=== PATIENT | male | born 1990 | race African-American/Black ===

== ENCOUNTER 2019-04-17 11:31 | Emergency (ER) | payer OTHER ==
[~2019-04-17] VITALS: Ht 172.7 cm; Wt 87.9 kg
[2019-04-17 11:40] VITALS: BP 153/79
[2019-04-17] MEDS ORDERED: AMOX500T PO (11:51)
[2019-04-17] MEDS ORDERED: PROM118S9 PO (11:51)
[2019-04-17] MEDS ORDERED: MELO7.5T29 PO (11:51)
--- NOTE | 2019-04-17 11:52 | PHYS DOC ---
Past History Past Medical History: No Pertinent History Past Surgical History: Tonsillectomy, Other Additional Past Surgical Histo: knee arthroscopic surgery Smoking: Non-smoker Alcohol Use: Occasionally Drug Use: None Adult General Chief Complaint Chief Complaint: SORE THROAT HPI HPI Patient is a 29-year-old male presents complaining of 3 days of sore throat and sinus congestion and discomfort. Maximum temperature at home was 99. No nausea or vomiting. No difficulty breathing. Unable to get into his primary care team. Nothing makes symptoms better or worse.[] Review of Systems Review of Systems Constitutional: Denies fever or chills [] Eyes: Denies change in visual acuity, redness, or eye pain [] HENT: See history of present illness[] Respiratory: Denies cough or shortness of breath [] Cardiovascular: No chest pain or palpitations[] GI: Denies abdominal pain, nausea, vomiting, bloody stools or diarrhea [] : Denies dysuria or hematuria [] Musculoskeletal: Denies back pain or joint pain. Recent right hand injury for which she was on cephalexin approximately 2 weeks ago. This is healing well. [] Integument: Denies rash or skin lesions [] Neurologic: Denies headache, focal weakness or sensory changes [] Endocrine: Denies polyuria or polydipsia [] All other systems were reviewed and found to be within normal limits, except as documented in this note. Allergies Allergies Allergies Coded Allergies Type Severity Reaction Last Updated Verified No Known Drug Allergies 04/17/19 No Physical Exam Physical Exam Constitutional: Well developed, well nourished, no acute distress, non-toxic appearance. [] HENT: Normocephalic, atraumatic, bilateral external ears normal, oropharynx moist, no oral exudates, nose normal. Posterior pharyngeal streaking is present. Minor sinus tenderness to percussion.[] Eyes: PERRLA, EOMI, conjunctiva normal, no discharge. [] Neck: Normal range of motion, no tenderness, supple, no stridor. [] Cardiovascular:Heart rate regular rhythm, no murmur [] Lungs & Thorax: Bilateral breath sounds clear to auscultation [] Abdomen: Bowel sounds normal, soft, no tenderness, no masses, no pulsatile masses. [] Skin: Warm, dry, no erythema, no rash. [] Back: No tenderness, no CVA tenderness. [] Extremities: No tenderness, no cyanosis, no clubbing, ROM intact, no edema. [] Neurologic: Alert and oriented X 3, normal motor function, normal sensory function, no focal deficits noted. [] Psychologic: Affect normal, judgement normal, mood normal. [] EKG EKG [] Radiology/Procedures Radiology/Procedures [] Course & Med Decision Making Course & Med Decision Making Pertinent Labs and Imaging studies reviewed. (See chart for details) Medical decision making: Patient appears to have an upper respiratory infection/sinusitis. No evidence of tonsillitis given that he has had previous tonsillectomy. No evidence of retropharyngeal abscess or peritonsillar abscess. No evidence of meningitis or encephalitis. Nontoxic patient. We'll treat with outpatient medicine.[] Dragon Disclaimer Dragon Disclaimer This electronic medical record was generated, in whole or in part, using a voice recognition dictation system. Departure Departure: Impression: Primary Impression: Upper respiratory infection Additional Impression: Pharyngitis Disposition: HOME, SELF-CARE Condition: STABLE Referrals: RAYMOND MASSEY DO (PCP) Follow-up in 2 days Patient Instructions: Upper Respiratory Infection, Adult, Viral and Bacterial Pharyngitis Additional Instructions: Drink plenty of fluids. Follow-up with your regular doctor in 2 days. Return to the ER if worsening pain, difficulty breathing, or any other concerns. Scripts D-Methorphan Hb/Prometh Hcl (PROMETHAZINE-DM SYRUP) 118 Ml Syrup 5 ML PO PRN Q4HRS for CONGESTION, #120 ML Prov: SANCHEZ GRAHAM DO 04/17/19 Meloxicam (MELOXICAM) 7.5 Mg Tablet 7.5 MG PO DAILY for PAIN, #20 TAB Prov: SANCHEZ GRAHAM DO 04/17/19 Amoxicillin (AMOXICILLIN) 500 Mg Tablet 500 MG PO TID for pharyngitis for 10 Days, #30 TAB Prov: SANCHEZ GRAHAM DO 04/17/19 Problem Qualifiers Primary Impression: Upper respiratory infection URI type: unspecified URI Qualified Codes: J06.9 - Acute upper respiratory infection, unspecified Additional Impression: Pharyngitis Pharyngitis/tonsillitis etiology: unspecified etiology Qualified Codes: J02.9 - Acute pharyngitis, unspecified SANCHEZ GRAHAM DO Apr 17, 2019 11:52
== END 2019-04-17 12:02 | disposition home or self-care (01) ==
LOC: ER 11:31
DX: J02.9 Acute pharyngitis, unspecified (principal)
CPT/HCPCS: 99283

== ENCOUNTER 2019-08-25 20:00 | Inpatient (IN) | payer OTHER ==
[~2019-08-25] VITALS: Ht 170.2 cm; Wt 85.8 kg
[~2019-08-25 20:00] MED LIST: AMOX500T PO; MELO7.5T29 PO; PROM118S9 PO
[2019-08-25] MEDS ORDERED: IV RINGERS SOLUTION,LACTATED 1,000 ML IV SCH (20:08)
--- NOTE | 2019-08-25 20:08 | PHYS DOC ---
Past History Past Medical History: No Pertinent History Past Surgical History: Tonsillectomy, Other Additional Past Surgical Histo: knee arthroscopic surgery Smoking: Non-smoker Alcohol Use: Occasionally Drug Use: None Adult General Chief Complaint Chief Complaint: ".. I ve been short of breath.. and get winded with any activity.. my heart gets to beating fast.. 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 Pt. recently assigned to his [facility] for approximately 6 months before returning to [facility]. Patient states he seems to be more short of breath and easily becomes tachycardic with minimal activity. Patient is up-to-date with vaccinations. No recent ill contacts. No history of prior DVTs or pulmonary embolisms. Has had occasionally had night sweats. No hx of bloody or tarry stools. Review of Systems Review of Systems Constitutional: Night fevers Eyes: Denies change in visual acuity, redness, or eye pain [] HENT: Denies nasal congestion or sore throat [] Respiratory: Complaints of a nonproductive cough and shortness of breath [] Cardiovascular: No additional information not addressed in HPI [] GI: Denies abdominal pain, nausea, vomiting, bloody stools or diarrhea [] : Denies dysuria or hematuria [] Musculoskeletal: Denies back pain or joint pain [] Integument: Denies rash or skin lesions [] Neurologic: Denies headache, focal weakness or sensory changes [] Endocrine: Denies polyuria or polydipsia [] All other systems were reviewed and found to be within normal limits, except as documented in this note. Family History Family History Non-contributory Current Medications Current Medications See nursing for home med Allergies Allergies Allergies Coded Allergies Type Severity Reaction Last Updated Verified No Known Drug Allergies 04/17/19 No Physical Exam Physical Exam Constitutional: Well developed, well nourished, no acute distress, non-toxic appearance. [] HENT: Normocephalic, atraumatic, bilateral external ears normal, oropharynx moist, no oral exudates, nose normal. [] Eyes: PERRLA, EOMI, conjunctiva pale, no discharge. [] Neck: Normal range of motion, no tenderness, supple, no stridor. [] Cardiovascular. Tachycardia Heart rate regular rhythm, no murmur [] Lungs & Thorax: Bilateral breath sounds clear to auscultation [] Abdomen: Bowel sounds normal, soft, no tenderness, no masses, no pulsatile masses. []Rectal showed no gross blood. Skin: Warm, dry, no erythema, no rash. Pale palms. [] Tattoos. Back: No tenderness, no CVA tenderness. [] Extremities: No tenderness, no cyanosis, no clubbing, ROM intact, no edema. [] Neurologic: Alert and oriented X 3, normal motor function, normal sensory function, no focal deficits noted. [] Psychologic: Affect normal, judgement normal, mood normal. [] EKG EKG My interpretation EKG shows a sinus tachycardia 109 bpm. No findings acute STEMI of contralateral changes.[] Radiology/Procedures Radiology/Procedures [] Course & Med Decision Making Course & Med Decision Making Pertinent Labs and Imaging studies reviewed. (See chart for details) Pt. admitted to Dr. Jones for further eval. and treatment. Will transfuse 2 units PRBC tonight. Impression: 1. Anemia Hgb= 3.8, microcytic hyperchromic indices 2. Hypokalemia 3.0 3. Elevated Creat. 1.4 4. DM = gluc.142 [] Dragon Disclaimer Dragon Disclaimer This electronic medical record was generated, in whole or in part, using a voice recognition dictation system. Departure Departure: Disposition: 01 HOME/RESIDENCE PRIOR TO ADM Condition: STABLE Referrals: RAYMOND MASSEY DO (PCP) [place] Disclaimer This chart was dictated in whole or in part using Voice Recognition software in a busy, high-work load, and often noisy Emergency Department environment. It may contain unintended and wholly unrecognized errors or omissions. LYNNE PACHECO MD Aug 25, 2019 20:08
[2019-08-25] MEDS ORDERED: ASPIRIN 81 MG TAB.CHEW PO ONE (20:25)
[2019-08-25 21:00] LABS: BASO % 0 % (0-3); CALCIUM 8.7 mg/dL (8.5-10.1); CREATININE 1.4 mg/dL (0.7-1.3); EOS # 0.1 x10^3/uL (0.0-0.7); EOS % 1 % (0-3); GFR 73.6; LYMPH # 3.2 x10^3/uL (1.0-4.8); LYMPH % 32 % (24-48); MEAN CORPUSCULAR HEMOGLOBIN 17 pg (25-35); MEAN CORPUSCULAR HGB CONC 28 g/dL (31-37); MEAN CORPUSCULAR VOLUME 59 fL (79-100); MONO % 10 % (0-9); NEUT # 5.8 x10^3uL (1.8-7.7); NEUT % 58 % (31-73); PLATELET COUNT 282 x10^3/uL (140-400); RED BLOOD COUNT 2.29 x10^6/uL (4.30-5.70); RED CELL DISTRIBUTION WIDTH 21.2 % (11.5-14.5)
[2019-08-25 21:04] LABS: HEMOGLOBIN 3.8 g/dL (13.0-17.5)
[2019-08-25 21:13] LABS: ALBUMIN 3.5 g/dL (3.4-5.0); DIRECT BILIRUBIN 0.1 mg/dL (0.0-0.2); TOTAL BILIRUBIN 0.3 mg/dL (0.2-1.0)
[2019-08-25 21:16] LABS: BARBITURATES NEG (NEG); BENZODIAZEPINES NEG (NEG); CANNABINOIDS NEG (NEG); COCAINE NEG (NEG); METHADONE NEG (NEG); OPIATES NEG (NEG); PHENCYCLIDINE NEG (NEG)
[2019-08-25 21:17] LABS: AMPHETAMINE/METHAMPHETAMINE NEG (NEG)
[2019-08-25] MEDS ORDERED: diphenhydrAMINE HCL 25 MG CAPSULE PO PRN (21:30)
[2019-08-25] MEDS ORDERED: diphenhydrAMINE HCL 25 MG CAPSULE PO ONE (21:30)
[2019-08-25] MEDS ORDERED: ONDANSETRON PF 4 MG/2 ML VIAL. IV PRN (21:30)
[2019-08-25] MEDS ORDERED: ACETAMINOPHEN 500 MG TABLET PO PRN (21:30)
[2019-08-25] MEDS ORDERED: ACETAMINOPHEN 500 MG TABLET PO ONE (21:30)
[2019-08-25 21:43] LABS: BILIRUBIN,URINE NEG (NEG); CLARITY,URINE CLEAR; COLOR,URINE YELLOW; GLUCOSE,URINE NEG (NEG); NITRITE,URINE NEG (NEG); UROBILINOGEN,URINE 0.2 mg/dL (0.2 mg/dL)
[2019-08-25 21:44] LABS: BACTERIA,URINE 0 /HPF (0-FEW); HYALINE CASTS, URINE OCC /HPF; RBC,URINE OCC /HPF (0-2); SQUAMOUS EPITHELIAL CELL,UR OCC /LPF; WBC,URINE OCC /HPF (0-4)
[2019-08-25] MEDS: FAMOTIDINE 20 MG TABLET PO SCH (21:45)
[2019-08-25 21:48] LABS: HYPOCHROMIA MARKED; PLT ESTIMATE ADEQUATE (ADEQUATE); POLYCHROMASIA MOD
[2019-08-25 21:49] LABS: ANISOCYTOSIS MOD; MICROCYTOSIS MARKED
[2019-08-25 21:50] LABS: TEAR DROP CELLS FEW
[2019-08-25 22:40] VITALS: BP 134/80
--- NOTE | 2019-08-25 22:40 | NUR ---
Admission Note: Pt transported via cart from ED to room 113. Pt able to ambulate from cart to bed w/no assistance. VSS. No c/o pain or n/v at this time. Pt continues to c/o SOA, oxygen saturation is 100% on RA. Arm band applied to patient, pt oriented to room, admission documentation completed. Plan of care discussed w/patient, pt agrees to blood transfusion. Will monitor.
[2019-08-25 23:08] LABS: FECAL OB PT NEGATIVE (NEG)
[2019-08-25 23:45] VITALS: BP 112/66
[2019-08-26] VITALS (18 sets, daily range): BP systolic 100–136; BP diastolic 62–90
--- NOTE | 2019-08-26 02:00 | NUR ---
Blood transfusion started at 08/26/19 0000. Tubing primed with Normal Saline and then primed with blood. Transfusion started at 65mls/hr, patient monitored closely [id number]. No reaction noted, transfusion increased 200mls/hr. Transfusion ended at 0200.00
[2019-08-26 02:31] LABS: RED BLOOD COUNT 2.41 x10^6/uL (4.30-5.70); RED CELL DISTRIBUTION WIDTH 28.8 % (11.5-14.5); WHITE BLOOD COUNT 8.3 x10^3/uL (4.0-11.0)
[2019-08-26 02:32] LABS: HEMOGLOBIN 4.6 g/dL (13.0-17.5)
[2019-08-26 02:33] LABS: HEMATOCRIT 15.3 % (39.0-53.0)
--- NOTE | 2019-08-26 02:49 | RAD ---
Exam: Chest 2 views INDICATION: Chest pain TECHNIQUE: Frontal and lateral views the chest Comparisons: None FINDINGS: The cardiomediastinal silhouette and pulmonary vessels are within normal limits. The lung and pleural spaces are clear. IMPRESSION: No acute cardiopulmonary process. Electronically signed by: Katelyn Shaw MD (08/26/2019 2:45 AM) [facility]
[2019-08-26] MEDS ORDERED: IPRATRPIUM/ALBUTEROL 0.5/2.5MG 3 ML NEBU. ONE (04:34)
--- NOTE | 2019-08-26 04:40 | NUR ---
Blood transfusion started at 0300 Tubing primed with Normal Saline and then primed with blood. Transfusion started at 65mls/hr, patient monitored closely [id number]. No reacted noted, transfusion increased to 200mls/hr. Transfusion ended at 0440
--- NOTE | 2019-08-26 06:13 | EKG ---
[address] [address] Test Date: 2019-08-25 Test Time: 20:14:07 Pat Name: PHOEBEDIANA MCKOY Department: Room: Gender: M System[employer] Professor: : 1990 Requested By: LYNNE PACHECO Order Number: [id number] Reading MD: Measurements Intervals [place] Rate: 109 P: 52 VA: 124 QRS: 46 QRSD: 90 T: 19 QT: 340 QTc: 459 Interpretive Statements SINUS TACHYCARDIA OTHERWISE NORMAL ECG RI6.01 No previous ECG available for comparison
[2019-08-26 06:52] LABS: BASO % 0 % (0-3); EOS # 0.1 x10^3/uL (0.0-0.7); EOS % 2 % (0-3); LYMPH % 29 % (24-48); MEAN CORPUSCULAR HEMOGLOBIN 21 pg (25-35); MEAN CORPUSCULAR HGB CONC 30 g/dL (31-37); MEAN CORPUSCULAR VOLUME 68 fL (79-100); MONO # 0.7 x10^3/uL (0.0-1.1); MONO % 9 % (0-9); NEUT # 4.3 x10^3uL (1.8-7.7); NEUT % 60 % (31-73); PLATELET COUNT 238 x10^3/uL (140-400); RED BLOOD COUNT 2.82 x10^6/uL (4.30-5.70); RED CELL DISTRIBUTION WIDTH 30.5 % (11.5-14.5); WHITE BLOOD COUNT 7.1 x10^3/uL (4.0-11.0)
[2019-08-26 06:55] LABS: HEMATOCRIT 19.2 % (39.0-53.0); HEMOGLOBIN 5.8 g/dL (13.0-17.5)
[2019-08-26 07:14] LABS: CALCIUM 7.8 mg/dL (8.5-10.1); CREATININE 1.1 mg/dL (0.7-1.3); GFR 97.2; POTASSIUM 3.4 mmol/L (3.5-5.1)
[2019-08-26] MEDS ORDERED: IPRATRPIUM/ALBUTEROL 0.5/2.5MG 3 ML NEBU. NEB PRN (07:15)
[2019-08-26] MEDS ORDERED: IPRATRPIUM/ALBUTEROL 0.5/2.5MG 3 ML NEBU. NEB SCH (08:00)
[2019-08-26] MEDS: FAMOTIDINE 20 MG TABLET PO SCH (08:14)
--- NOTE | 2019-08-26 10:44 | NUR ---
Blood transfusion started at 0841 Tubing primed with Normal Saline and then primed with blood. Transfusion started at 60mls/hr, patient monitored closely [id number]. No reacted noted, transfusion increased to 200mls/hr. Transfusion ended at 1020. No complications noted with transfusion.
[2019-08-26 10:53] LABS: HEMATOCRIT 22.6 % (39.0-53.0); RED BLOOD COUNT 3.22 x10^6/uL (4.30-5.70); RED CELL DISTRIBUTION WIDTH 30.5 % (11.5-14.5); WHITE BLOOD COUNT 8.3 x10^3/uL (4.0-11.0)
[2019-08-26 11:01] LABS: HEMOGLOBIN 6.9 g/dL (13.0-17.5)
--- NOTE | 2019-08-26 13:44 | HP ---
ADMIT DATE: 08/25/2019 HISTORY OF PRESENT ILLNESS: The patient is a 29-year-old -[place] male patient who came to the Emergency Room with increasing shortness of breath and generalized weakness, showed that his heart was beating fast and he is getting tired all the time as well as chest discomfort. He was on assignment in [facility] for approximately 6 months before returning to [facility]. He stated that he seemed to be more short of breath and easily becomes tachycardic with minimal activity. He is up-to-date with vaccination. He stated that in June of this year he has had lab work and was told that all his lab works are fine and that he is perfectly healthy. He has never had any prior history of DVT or pulmonary embolism. He did complain of occasional episodes of fresh blood per rectum; however, has never had any esophagogastroduodenoscopy or colonoscopy. He was extensively investigated in the Emergency Room and his initial lab work showed that his hemoglobin was 3.8, hematocrit 13.4 with an MCV of 59, although his white cell count and platelets are within normal range and the differential diagnosis was also within normal range. The blood film showed that the patient has polychromasia, hypochromasia, neocytosis, microcytosis and teardrop cells that are few. He was also noted to be hypokalemic with slightly elevated serum creatinine of 1.4. His prothrombin time, INR and aPTT were normal. His D-dimer was high at 2.23. Urinalysis essentially unremarkable and toxic screen was negative. The patient was admitted and has received his first unit of blood that increased his H and H to 4.6 and 15.3, so he received another unit and that increased his H and H to 5.8 and 19.2 this morning. His sedimentation rate was extremely high at 86 mm per hour and his absolute reticulocyte count was 0.095. PAST MEDICAL HISTORY: Unremarkable. PAST SURGICAL HISTORY: Significant for tonsillectomy, wisdom teeth extraction, vasectomy and left knee arthroscopic surgery. ALLERGIES: He has no known drug allergies. He is not taking any medication on a regular basis. Use of ibuprofen on as needed basis for aches and pains. FAMILY HISTORY: He has 4 brothers and 4 sisters, one brother and one sister older and rest are younger and they are all half-brothers and half-sisters. He is not aware of any medical problems with any of his brothers and sisters. His father is still alive at the age of 50 and has had a permanent pacemaker placed when he was 40 years old. His mother is alive at age of 47 and had a problem with anemia as she has heavy period and dysfunctional uterine bleeding requiring eventually total abdominal hysterectomy. There is no family history of any blood disease. In particular, there is no history of sickle cell trait or sickle cell anemia. SOCIAL HISTORY: He is , has a son and a daughter. He does not smoke, drink alcohol or use any recreational drugs. He continues to be in the [employer]. REVIEW OF SYSTEMS: The patient denied any blurring of vision, cataract, glaucoma or macular degeneration. Denied any earache, tinnitus or sensorineural deafness. Denied any nosebleeds, stuffy nose or postnasal drip. Denied any sore throat, sore tongue, toothache, hoarseness of voice or difficulty swallowing. Denied any nausea, vomiting, diarrhea or constipation. Denied any hematemesis, melena or hematochezia. Denied any dysuria, frequency or hematuria. Did complain of some chest discomfort, but denied any chest pain. He did complain of shortness of breath, but denied any orthopnea or paroxysmal nocturnal dyspnea. Denied any cough, phlegm or hemoptysis. Denied any epistaxis. Denied any dizziness, lightheadedness, or vertigo. Did complain of profound weakness and shortness of breath. The patient stated that he was in [place] and was given a prophylactic treatment for malaria, but has never been told he has malaria before. PHYSICAL EXAMINATION: GENERAL: On arrival to the Emergency Room, he was pale, but no jaundice, cyanosis, or thyromegaly. No jugular venous distension. No lower limb edema. VITAL SIGNS: His heart rate was 106, blood pressure was 134/80, temperature was 98.5, respiratory rate 20, and oxygen saturation was 100% on room air. HEAD, EYES, EARS, NOSE AND THROAT: Showed normocephalic, atraumatic. NECK: Supple. HEART: Showed normal first and second heart sounds. No gallop or murmur. CHEST: Clear to auscultation. No crepitation or rhonchi. ABDOMEN: Distended, soft, nontender. NEUROLOGIC: He was awake, alert, responding appropriately. All cranial nerves intact. EXTREMITIES: He moves extremities without difficulty, ambulates without assistance or assistive devices. LABORATORY DATA: On arrival showed his white cell count to be normal at 10,000, hemoglobin 3.8, hematocrit 13.4, MCV 59 and platelet count of 282,000 with normal manual differential. His chemistry showed a serum sodium 136, potassium 4, chloride 100, bicarbonate 24, anion gap of 12, BUN 12, serum creatinine was 1.4, estimated GFR was 73 mL per minute, his glucose 142, calcium was 8.7, magnesium 2. Total bilirubin, AST, ALT, alkaline phosphatase were normal. Serum CK was 180, troponin was less than 0.017. Beta natriuretic peptide was 111. Total protein was 7, albumin 3.5 and lipase 179. His prothrombin time and INR normal, aPTT was less than 23 and D-dimer was 2.23. Urinalysis showed the urine was yellow, clear with a pH of 5.5, specific gravity more than 1.030. There was trace of protein. The urine was negative for glucose, ketones, blood, nitrite, leukocyte esterase. There are no rbc's, no wbc's, and no bacteria. His toxic screen was negative. Stool for occult blood was negative. He did have a chest x-ray, which showed the patient had cardiomediastinal silhouette and pulmonary vessels are within normal limits. The lungs and pleural spaces are clear. ASSESSMENT AND PLAN: The patient was admitted with severe microcytic hypochromic anemia. Other findings, hypokalemia and elevated serum creatinine of 1.4. The patient was transfused. We will transfuse him to maintain his hemoglobin more than 7 g/dL. I have sent labs for serum iron, TIBC, and serum ferritin and we will also send labs for hemoglobin electrophoresis. We will probably transfuse him to get his hemoglobin above 7 and replenish his iron with Venofer and he probably needs upper and lower GI endoscopy and we will decide the further management accordingly. LAURYN JOHNSON MD DR: JESSICA/russ JOB#: [id number] / [id number]
[2019-08-26 15:10] LABS: HEMATOCRIT 25.2 % (39.0-53.0); HEMOGLOBIN 7.9 g/dL (13.0-17.5); RED BLOOD COUNT 3.53 x10^6/uL (4.30-5.70); RED CELL DISTRIBUTION WIDTH 29.9 % (11.5-14.5); WHITE BLOOD COUNT 9.2 x10^3/uL (4.0-11.0)
--- NOTE | 2019-08-26 15:35 | NUR ---
Blood transfusion started at 1227. Tubing primed with Normal Saline and then primed with blood. Transfusion started at 60mls/hr, patient monitored closely [id number]. No reacted noted, transfusion increased to 200mls/hr. Transfusion ended at 1434. No complications noted with transfusion.
--- NOTE | 2019-08-26 15:49 | NUR ---
NURSING NOTES: PATIENT GOT OUT OF BED TO USE RESTROOM AT 1445, [employer]ULT[employer] INTERN NOTED BLOOD ON SHEETS UNDER PATIENT'S BOTTOM. [employer] INTERN NOTIFIED THIS NURSE. UPON ARRIVAL TO PATIENT ROOM MODERATE AMOUNT OF BLOOD SEEN ON PATIENT'S SHEETS AND PATIENT INSTRUCTED TO VOID IN HAT IN TOILET. AFTER PATIENT EXITED THE BATHROOM THIS NURSE NOTED MODERATE AMOUNT OF BRIGHT RED BLOOD IN HAT. DR. JOHNSON NOTIFIED AND GIVEN ORDERS TO TRANSFER TO [facility] FOR FURTHER TESTING. REPORT CALLED TO MENG LEE. PATIENT HAS BEEN DISCHARGED TO [facility] ICU BED 115 AT 1550. ALL PATIENT BELONGING SENT WITH PATIENT. NO FURTHER CONCERNS AT THIS TIME.
--- NOTE | 2019-08-26 18:27 | PN ---
DATE: 08/26/2019 SUBJECTIVE: The patient was admitted yesterday with severe microcytic hypochromic anemia. His hemoglobin on arrival was 3.8 and hematocrit 13.4. He did receive 2 units of packed RBCs overnight and his hemoglobin this morning was 5.8 and 19.2, so we did transfuse him 1 more unit and around 10:00 hour, his hemoglobin was 6.9, hematocrit was 22.6. PHYSICAL EXAMINATION: GENERAL: When I examined him this morning, he was resting slightly propped up in bed, in no apparent respiratory distress, pale, but no jaundice, cyanosis, or thyromegaly. No jugular venous distention. No limb edema. VITAL SIGNS: Her heart rate was 101, blood pressure was 127/90, temperature was 97.8, respiratory rate 20, and oxygen saturation was 100%. HEAD, EYES, EARS, NOSE, AND THROAT: Normocephalic, atraumatic. NECK: Supple. HEART: Showed normal first and second heart sounds. No gallop or murmur. CHEST: Clear to auscultation. No crepitation or rhonchi. ABDOMEN: Slightly distended, soft, nontender. NEUROLOGIC: He is awake, alert, responding appropriately. All cranial nerves are intact. He moves extremities without difficulty. He ambulates without assistance or assistive devices. His intake was 2500, no output was recorded. LABORATORY DATA: Her lab work this morning showed a white cell count of 8300, hemoglobin 6.9, hematocrit 22.6, MCV 70, and platelet count of 227,000. His absolute reticulocyte count was 0.095%, reticulocyte was 4.2%, and immature reticulocyte fraction was 0.62. His chemistry this morning showed a serum sodium 137, potassium 3.4, chloride 103, bicarbonate 25, anion gap of 9, BUN 11, creatinine was 1.1, estimated GFR was 97 mL per minute. His glucose was 118, calcium was 7.8. ASSESSMENT AND PLAN: So, in summary, this is a 29-year-old, -[place] male patient who was admitted with severe microcytic hypochromic anemia with hemoglobin 3.8, hematocrit 18, has received 3 units of packed RBCs and his hemoglobin has risen to 6.9 and 22.6. We did actually order another one. We ordered his serum iron, TIBC, and serum ferritin together with hemoglobin electrophoresis, the results of which is still pending at the time of this dictation. When I examined him this afternoon, he looked well and was clearly in no apparent respiratory distress. 1. In summary, this is a 29-year-old with severe microcytic hypochromic anemia. 2. Hypokalemia that has resolved. His potassium is up to 3.4, impaired kidney function, creatinine 1.4, it came down to 1.1. We will repeat his labs this afternoon and serum ferritin and we will treat him with IV Venofer and eventually he probably needs to be seen by [facility] man for both upper and lower GI endoscopy given that he has had episodes of fresh blood per rectum before. LAURYN JOHNSON MD DR: JESSICA/russ JOB#: [id number] / [id number]
[2019-08-26 21:25] LABS: THYROID STIM HORMONE (TSH) 1.145 uIU/mL (0.358-3.740)
[2019-08-27 11:51] LABS: HEMATOCRIT 13.4 % (39.0-53.0)
== END 2019-08-26 15:55 | disposition short-term general hospital (02) | DRG 811 ==
LOC: ER 20:00 → 1 SOUTH 21:30
PROVIDERS: ADMIT Internal Medicine; ATTEND Internal Medicine
PROC: 30233N1 Transfusion of Nonautologous Red Blood Cells into Peripheral Vein, Percutaneous Approach (ICD-10-PCS; principal; 2019-08-25)
DX: D50.9 Iron deficiency anemia, unspecified (principal); N17.0 Acute kidney failure with tubular necrosis; E87.6 Hypokalemia; E11.9 Type 2 diabetes mellitus without complications; Z90.49 Acquired absence of other specified parts of digestive tract; Z79.899 Other long term (current) drug therapy
CPT/HCPCS: 36415; 71046; 80048; 80061; 80076; 80307; 81001; 82274; 82550; 82728; 82947; 83020; 83540; 83550; 83690; 83735; 83880; 84443; 84484; 85025; 85027; 85045; 85379; 85610; 85651; 85730; 86850; 86900; 86901; 86920; 93005; 96360; G0238; J7120; P9016; Q0163; 99285-25